=== PATIENT | male | born 1975 | race Caucasian/White ===

== ENCOUNTER 2022-01-03 10:55 | Day surgery (SDC) | payer OTHER ==
[~2022-01-03] VITALS: Ht 180.3 cm; Wt 92.6 kg
[2022-01-03] MEDS ORDERED: COREG 6.256.25 MG/TA PO (11:38)
[2022-01-03] MEDS ORDERED: KEPPRA1000 MG PO (11:38)
[2022-01-03 12:08] VITALS: BP 113/77; PULSE 49; TEMP 97.2
[2022-01-03] MEDS ORDERED: MOTRIN 600600 MG/TAB PO (15:25)
[2022-01-03] MEDS ORDERED: PERCOCET 325 MG1 TA2 PO (15:25)
[2022-01-03 15:45] VITALS: BP 128/76; PULSE 56; TEMP 97.2
[2022-01-03 16:00] VITALS: BP 127/72; PULSE 56
[2022-01-03 16:15] VITALS: BP 117/74; PULSE 54
[2022-01-03 16:30] VITALS: BP 133/80; PULSE 63
--- NOTE | 2022-01-03 17:17 | NUR ---
1545- PT RETURNS TO ROOM 6 PER COT. DROWSY. VS MONITOR ON. LR INFUSING IN L HAND AT TKO. HAS SCROTAL SUPPORT ON. PT HAS 3 INCISION SITES TO LOWER ABDOMEN WITH GLUE IN PLACE. CALL LIGHT IN REACH. 1600- PT GIVEN A SPRITE. MORE AWAKE. REPORTS PAIN IS TOLERABLE. 1615- REQUEST AND GIVEN ANOTHER SPRITE. REFUSES ANY FOOD TO EAT AT THIS TIME. 1630- LAST SET OF VS MONITORED. IV FLUIDS DC'D. PT AMBULATES TO BR WITH STAND BY ASSIST. VOIDED. BACK TO EDGE OF BED. DISCHARGE INSTRUCTIONS GIVEN WITH VERBAL UNDERSTANDING. IV SITE DC'D WITH CATH INTACT. PUTS OWN CLOTHING ON. TRANSFER TO PATIENT ENTRANCE PER W/C. DISMISS TO PRIVATE VEHICLE WITH FIANCE.
== END 2022-01-03 17:00 | disposition home or self-care (01) ==
LOC: SDCO 10:55
DX: K40.20 Bilateral inguinal hernia, without obstruction or gangrene, not specified as recurrent (principal); F17.210 Nicotine dependence, cigarettes, uncomplicated; I10 Essential (primary) hypertension
CPT/HCPCS: C1781; J0690; J1100; J1885; J2250; J2405; J2704; J3010; J7120